=== PATIENT | male | born 1945 | race Native Hawaiian/Other Pacific Islander ===

== ENCOUNTER 2019-09-11 14:10 | Inpatient (IN) | payer OTHER ==
[2019-09-11] VITALS (11 sets, daily range): BP systolic 104–134; BP diastolic 57–67; TEMP 98.8–100.7; Ht 182.9 cm; Wt 81.7 kg
[~2019-09-11] VITALS: Ht 182.9 cm; Wt 81.7 kg
[2019-09-11 14:58] LABS: PLATELET COUNT 190 K/uL (142-355)
[2019-09-11 15:08] LABS: POTASSIUM 4.1 mmol/L (3.6-5.2); SODIUM 127 mmol/L (136-145)
[2019-09-12] VITALS (24 sets, daily range): BP systolic 103–141; BP diastolic 50–611; TEMP 98.5–99.5
[2019-09-12] MEDS ORDERED: VALSARTAN160 MG PO (06:20)
[2019-09-12] MEDS ORDERED: ROSU10TA PO (06:20)
[2019-09-12] MEDS ORDERED: GLIM4TAB PO (06:21)
[2019-09-12] MEDS ORDERED: JANUMET1 TA1 PO (06:21)
[2019-09-12] MEDS ORDERED: OZEMPIC2 MG/1.5 M SC (06:24)
[2019-09-12 10:26] LABS: PLATELET COUNT 236 K/uL (142-355)
[2019-09-12 10:45] LABS: POTASSIUM 4.1 mmol/L (3.6-5.2)
[2019-09-13] VITALS (22 sets, daily range): BP systolic 110–144; BP diastolic 57–71; TEMP 98.2–98.8
[2019-09-13 05:37] LABS: POTASSIUM 4.1 mmol/L (3.6-5.2)
[2019-09-13 06:14] LABS: PLATELET COUNT 173 K/uL (142-355)
[2019-09-14] VITALS (23 sets, daily range): BP systolic 126–160; BP diastolic 57–79; TEMP 97.9–98.9
[2019-09-14 05:30] LABS: PLATELET COUNT 264 K/uL (142-355)
[2019-09-14 05:43] LABS: POTASSIUM 4.4 mmol/L (3.6-5.2)
[2019-09-15] VITALS (22 sets, daily range): BP systolic 116–174; BP diastolic 49–84; TEMP 98.6–102.6
[2019-09-15 05:43] LABS: PLATELET COUNT 253 K/uL (142-355)
[2019-09-15 05:51] LABS: POTASSIUM 4.1 mmol/L (3.6-5.2)
[2019-09-16] VITALS (19 sets, daily range): BP systolic 100–167; BP diastolic 41–77; TEMP 98.1–99.8
[2019-09-16 03:23] LABS: PLATELET COUNT 219 K/uL (142-355)
[2019-09-16 03:42] LABS: POTASSIUM 4.2 mmol/L (3.6-5.2)
[2019-09-17] VITALS (29 sets, daily range): BP systolic 108–165; BP diastolic 48–85; TEMP 98.8–99.6
[2019-09-17 06:01] LABS: PLATELET COUNT 105 K/uL (142-355)
[2019-09-17 06:21] LABS: POTASSIUM 4.9 mmol/L (3.6-5.2)
[2019-09-18] VITALS (29 sets, daily range): BP systolic 103–165; BP diastolic 51–72; TEMP 97.3–100.2
[2019-09-18 13:57] LABS: POTASSIUM 4.6 mmol/L (3.6-5.2)
[2019-09-18 14:24] LABS: PLATELET COUNT 116 K/uL (142-355)
[2019-09-19] VITALS (24 sets, daily range): BP systolic 120–163; BP diastolic 50–74; TEMP 98.8–100.5
[2019-09-19 05:44] LABS: PLATELET COUNT 112 K/uL (142-355)
[2019-09-19 06:01] LABS: POTASSIUM 5.1 mmol/L (3.6-5.2)
[2019-09-19 11:02] LABS: PLATELET COUNT 137 K/uL (142-355)
[2019-09-19 11:17] LABS: POTASSIUM 4.8 mmol/L (3.6-5.2)
[2019-09-20] VITALS (47 sets, daily range): BP systolic 104–325; BP diastolic 51–96; TEMP 98.6–101.4
[2019-09-20 06:02] LABS: PLATELET COUNT 91 K/uL (142-355)
[2019-09-20 06:29] LABS: POTASSIUM 4.5 mmol/L (3.6-5.2)
[2019-09-21] VITALS (39 sets, daily range): BP systolic 117–161; BP diastolic 59–76; TEMP 98.6–100.4
[2019-09-21 05:45] LABS: POTASSIUM 4.6 mmol/L (3.6-5.2)
[2019-09-21 05:49] LABS: PLATELET COUNT 115 K/uL (142-355)
[2019-09-22] VITALS (45 sets, daily range): BP systolic 109–186; BP diastolic 48–89; TEMP 98.4–100.4
[2019-09-22 05:54] LABS: PLATELET COUNT 124 K/uL (142-355)
[2019-09-22 06:01] LABS: POTASSIUM 4.3 mmol/L (3.6-5.2)
[2019-09-23] VITALS (23 sets, daily range): BP systolic 71–177; BP diastolic 35–88; TEMP 98.7–100.1
[2019-09-23 06:55] LABS: PLATELET COUNT 146 K/uL (142-355)
[2019-09-23 07:04] LABS: POTASSIUM 4.3 mmol/L (3.6-5.2)
[2019-09-24] VITALS (24 sets, daily range): BP systolic 113–145; BP diastolic 50–74; TEMP 98.5–99.8
[2019-09-24 07:17] LABS: PLATELET COUNT 140 K/uL (142-355)
[2019-09-24 07:30] LABS: POTASSIUM 3.7 mmol/L (3.6-5.2)
[2019-09-25] VITALS (22 sets, daily range): BP systolic 101–159; BP diastolic 50–71; TEMP 97.8–99.9
[2019-09-25 05:57] LABS: PLATELET COUNT 148 K/uL (142-355)
[2019-09-25 06:18] LABS: POTASSIUM 3.4 mmol/L (3.6-5.2)
[2019-09-26] VITALS (16 sets, daily range): BP systolic 98–129; BP diastolic 53–77; TEMP 98–99
[2019-09-26 01:48] LABS: POTASSIUM 3.2 mmol/L (3.6-5.2)
[2019-09-27] VITALS (23 sets, daily range): BP systolic 87–161; BP diastolic 45–84; TEMP 97.8–98.9
[2019-09-27 01:47] LABS: POTASSIUM 4.1 mmol/L (3.6-5.2)
[2019-09-28] VITALS (22 sets, daily range): BP systolic 110–148; BP diastolic 59–90; TEMP 97.8–98.9
[2019-09-28 06:01] LABS: PLATELET COUNT 181 K/uL (142-355)
[2019-09-28 06:35] LABS: POTASSIUM 3.6 mmol/L (3.6-5.2)
[2019-09-29] VITALS (23 sets, daily range): BP systolic 108–140; BP diastolic 55–76; TEMP 98.5–99
[2019-09-29 06:01] LABS: PLATELET COUNT 179 K/uL (142-355)
[2019-09-29 06:17] LABS: POTASSIUM 3.6 mmol/L (3.6-5.2)
[2019-09-30] VITALS (24 sets, daily range): BP systolic 105–146; BP diastolic 62–80; TEMP 97.8–98.8
[2019-09-30 05:04] LABS: PLATELET COUNT 160 K/uL (142-355)
[2019-10-01] VITALS (19 sets, daily range): BP systolic 99–139; BP diastolic 43–71; TEMP 98.4–98.9
[2019-10-01 06:41] LABS: PLATELET COUNT 152 K/uL (142-355)
[2019-10-01 07:19] LABS: POTASSIUM 3.9 mmol/L (3.6-5.2)
[2019-10-02] VITALS: BP 107/50; TEMP 97.6
[2019-10-02 04:00] VITALS: BP 113/62; TEMP 98.1
[2019-10-02 05:16] LABS: POTASSIUM 4.1 mmol/L (3.6-5.2)
[2019-10-02 05:32] LABS: PLATELET COUNT 116 K/uL (142-355)
[2019-10-02 08:00] VITALS: BP 155/76; TEMP 97.9
[2019-10-02 12:00] VITALS: BP 124/85; TEMP 98.4
[2019-10-02 16:00] VITALS: BP 127/63; TEMP 98.3
[2019-10-02 20:00] VITALS: BP 108/69; TEMP 98.2
[2019-10-03] VITALS: BP 125/67; TEMP 98.2
[2019-10-03 04:07] VITALS: BP 115/73; TEMP 98.2
[2019-10-03 04:38] LABS: POTASSIUM 4.9 mmol/L (3.6-5.2)
[2019-10-03 05:17] LABS: PLATELET COUNT 132 K/uL (142-355)
[2019-10-03 07:43] VITALS: BP 131/59; TEMP 97.6
[2019-10-03 12:00] VITALS: BP 128/77; TEMP 98.8
[2019-10-03 15:50] VITALS: BP 123/78; TEMP 98.7
[2019-10-03 20:16] VITALS: BP 117/62; TEMP 98.3
[2019-10-04] VITALS (7 sets, daily range): BP systolic 104–125; BP diastolic 56–70; TEMP 97.5–98.8
[2019-10-04 05:59] LABS: PLATELET COUNT 94 K/uL (142-355)
[2019-10-05 04:00] VITALS: BP 142/67; TEMP 98.1
[2019-10-05 06:21] LABS: POTASSIUM 3.8 mmol/L (3.6-5.2)
[2019-10-05 06:24] LABS: PLATELET COUNT 135 K/uL (142-355)
[2019-10-05 08:00] VITALS: BP 134/81; TEMP 98.8
[2019-10-05 12:00] VITALS: BP 120/75; TEMP 98.1
[2019-10-05 16:00] VITALS: BP 117/67; TEMP 98.5
[2019-10-05 20:00] VITALS: BP 116/86; TEMP 97.2
[2019-10-06] VITALS: BP 121/73; TEMP 98
[2019-10-06 04:00] VITALS: BP 104/62; TEMP 98.2
[2019-10-06 05:58] LABS: PLATELET COUNT 122 K/uL (142-355)
[2019-10-06 06:26] LABS: POTASSIUM 3.5 mmol/L (3.6-5.2)
[2019-10-06 08:00] VITALS: BP 128/73; TEMP 97.5
[2019-10-06 12:00] VITALS: BP 117/82; TEMP 98.1
[2019-10-06 16:00] VITALS: BP 111/72; TEMP 98.2
[2019-10-06 20:00] VITALS: BP 123/76; TEMP 97.6
[2019-10-07 00:17] VITALS: BP 131/86; TEMP 98.6
[2019-10-07 04:10] VITALS: BP 140/69; TEMP 98.4
[2019-10-07 08:00] VITALS: BP 131/79; TEMP 97.9
[2019-10-07 12:00] VITALS: BP 119/85; TEMP 97.9
[2019-10-07 16:00] VITALS: BP 113/75; TEMP 98.8
[2019-10-07 20:00] VITALS: BP 113/74; TEMP 98.9
[2019-10-08 00:01] VITALS: BP 117/72; TEMP 98.3
[2019-10-08 04:00] VITALS: BP 121/73; TEMP 97.9
[2019-10-08 05:24] LABS: PLATELET COUNT 116 K/uL (142-355)
[2019-10-08 05:42] LABS: POTASSIUM 3.6 mmol/L (3.6-5.2)
[2019-10-08 08:00] VITALS: BP 129/81; TEMP 99
[2019-10-08 12:00] VITALS: BP 121/79; TEMP 98.9
[2019-10-08 16:00] VITALS: BP 104/53; TEMP 97.8
[2019-10-08 20:00] VITALS: BP 124/81; TEMP 97.5
[2019-10-09] VITALS: BP 134/84; TEMP 97.4
[2019-10-09 04:00] VITALS: BP 133/85; TEMP 97.8
[2019-10-09 08:00] VITALS: BP 129/81; TEMP 97.6
[2019-10-09 09:15] LABS: POTASSIUM 4.3 mmol/L (3.6-5.2); SODIUM 127 mmol/L (136-145)
[2019-10-09 09:52] LABS: PLATELET COUNT 157 K/uL (142-355)
[2019-10-09 12:00] VITALS: BP 112/71; TEMP 97.6
[2019-10-09 16:00] VITALS: BP 130/75; TEMP 98.1
[2019-10-09 19:55] VITALS: BP 123/82; TEMP 98.3
[2019-10-10 00:17] VITALS: BP 108/64; TEMP 98
[2019-10-10 04:00] VITALS: BP 108/64; TEMP 98.3
[2019-10-10 05:19] LABS: POTASSIUM 5.2 mmol/L (3.6-5.2)
[2019-10-10 05:38] LABS: PLATELET COUNT 100 K/uL (142-355)
[2019-10-10 08:00] VITALS: BP 104/61; TEMP 97.6
[2019-10-10 12:00] VITALS: BP 134/74; TEMP 97.4
[2019-10-10 16:00] VITALS: BP 126/72; TEMP 98.1
[2019-10-10 19:43] VITALS: BP 135/75; TEMP 98.4
[2019-10-11] VITALS (11 sets, daily range): BP systolic 112–125; BP diastolic 50–59; TEMP 98–99
== END 2019-10-11 18:11 | disposition short-term general hospital (02) | DRG 207 ==
LOC: ED 14:19 → ICU 15:30 → MED/SURG 10-01 20:51 → ICU 10-01 20:51 → MED/SURG 10-01 20:51
PROVIDERS: Internal Medicine; Internal Medicine Endocrinology, Diabetes & Metabolism; ADMIT Hospitalist
PROC: 30233K1 Transfusion of Nonautologous Frozen Plasma into Peripheral Vein, Percutaneous Approach (ICD-10-PCS; 2019-09-14)
PROC: 5A1955Z Respiratory Ventilation, Greater than 96 Consecutive Hours (ICD-10-PCS; principal; 2019-09-16)
PROC: 0BH18EZ Insertion of Endotracheal Airway into Trachea, Via Natural or Artificial Opening Endoscopic (ICD-10-PCS; 2019-09-16)
PROC: 0DH67UZ Insertion of Feeding Device into Stomach, Via Natural or Artificial Opening (ICD-10-PCS; 2019-09-16)
PROC: 02HV33Z Insertion of Infusion Device into Superior Vena Cava, Percutaneous Approach (ICD-10-PCS; 2019-09-17)
PROC: 30233N1 Transfusion of Nonautologous Red Blood Cells into Peripheral Vein, Percutaneous Approach (ICD-10-PCS; 2019-10-11)
DX: U07.1 COVID-19 (principal); J96.01 Acute respiratory failure with hypoxia; E43 Unspecified severe protein-calorie malnutrition; K66.1 Hemoperitoneum; E87.1 Hypo-osmolality and hyponatremia; N17.9 Acute kidney failure, unspecified; B37.0 Candidal stomatitis; E11.9 Type 2 diabetes mellitus without complications; E78.49 Other hyperlipidemia; I10 Essential (primary) hypertension; E87.6 Hypokalemia; F32.89 Other specified depressive episodes; I95.89 Other hypotension; R00.0 Tachycardia, unspecified; D72.828 Other elevated white blood cell count; Z68.25 Body mass index [BMI] 25.0-25.9, adult; L89.612 Pressure ulcer of right heel, stage 2; L89.152 Pressure ulcer of sacral region, stage 2
CPT/HCPCS: 36415; 36571; 36591; 36600; 80048; 80053; 80061; 81000; 82550; 82553; 82728; 82805; 82947; 83605; 83615; 83735; 83880; 84478; 84484; 85007; 85014; 85018; 85027; 85610; 85730; 86140; 86850; 86900; 86901; 86922; 87040; 87070; 87077; 87185; 87186; 87205; 87651; 93005; 94002; 94003; 94640; 94664; 94667; 94668; 94760; 96361; 96365; 96375; 99284; C1751; J0132; J0153; J0456; J0696; J1100; J1450; J1650; J1815; J1940; J1956; J2060; J2185; J2250; J2270; J2405; J2543; J3010; J3370; J3490; P9016; P9017; P9047; Q9963

== ENCOUNTER 2019-12-08 13:27 | Outpatient (CLI) | payer OTHER ==
[~2019-12-08 13:27] MED LIST: GLIM4TAB PO; JANUMET1 TA1 PO; OZEMPIC2 MG/1.5 M SC; ROSU10TA PO; VALSARTAN160 MG PO
[2019-12-08 15:11] LABS: PARTIAL THROMBOPLASTIN TIME 24.1 SECONDS (24.5-33.6)
[2019-12-08 15:18] LABS: PLATELET COUNT 196 K/uL (142-355)
== END 2019-12-08 23:30 | disposition home or self-care (01) ==
LOC: LAB 13:27
PROVIDERS: Podiatrist
DX: Z01.810 Encounter for preprocedural cardiovascular examination (principal); Z01.811 Encounter for preprocedural respiratory examination; Z01.812 Encounter for preprocedural laboratory examination; Z79.899 Other long term (current) drug therapy
CPT/HCPCS: 36415; 80053; 83036; 85002; 85027; 85610; 85730; 93005

== ENCOUNTER 2020-02-16 14:04 | Emergency (ER) | payer OTHER ==
[~2020-02-16] VITALS: Ht 182.9 cm; Wt 90.7 kg
[2020-02-16 14:04] VITALS: TEMP 98.7
[2020-02-16 15:08] LABS: PLATELET COUNT 167 K/uL (142-355)
[2020-02-16 15:21] LABS: POTASSIUM 4.1 mmol/L (3.6-5.2)
[2020-02-16 17:04] VITALS: BP 171/65
== END 2020-02-16 17:04 | disposition home or self-care (01) ==
LOC: ED 14:04
PROVIDERS: Emergency Medicine Emergency Medical Services
DX: R10.84 Generalized abdominal pain (principal); K80.50 Calculus of bile duct without cholangitis or cholecystitis without obstruction
CPT/HCPCS: 80053; 82150; 83690; 84484; 85027; 93005; 96374; 96375; 99284; J1885; J2270; J2405